=== PATIENT | female | born 1965 | race Caucasian/White ===

== ENCOUNTER 2017-10-20 05:56 | Day surgery (SDC) | payer MEDICAID ==
[~2017-10-20] VITALS: Ht 166.4 cm; Wt 59.1 kg
[~2017-10-20 05:56] MED LIST: BUPR-93 PO; DULO60CA44 PO; FAMO20 PO; FLUT16H NASAL; HYDR25TA PO; MONT10TA21 PO; PERCT10 PO; PSEU60 PO; TRAZ-144 PO
[2017-10-20] MEDS ORDERED: ALBUTEROL SULFATE 2.5 MG/0.5 ML NEB SOLUTION NEB ONE (05:57)
[2017-10-20] MEDS ORDERED: LIDOCAINE HCL 4% 50 ML SOLUTION TP ONE (05:57)
[2017-10-20] MEDS ORDERED: LIDOCAINE HCL 2% 30 ML JELLY TP ONE (05:57)
[2017-10-20] MEDS ORDERED: BENZOCAINE 20% 50 MCG/SPRAY 57 GM TP ONE (05:57)
[2017-10-20] MEDS ORDERED: SODIUM CHLORIDE 0.9% 1,000 ML IV ONE ×2 (06:55→07:00)
[2017-10-20] MEDS ORDERED: FentaNYL CITRATE-PF 100 MCG/2 ML VIAL ONE (08:02)
[2017-10-20] MEDS ORDERED: MIDAZOLAM HCL 2 MG/2 ML VIAL ONE (08:02)
[2017-10-20] MEDS ORDERED: MethylPREDNISolone SOD SUCC 125 MG/2 ML VIAL IVP ONE (08:30)
[2017-10-20] MEDS ORDERED: MethylPREDNISolone SOD SUCC 125 MG/2 ML VIAL ONE (08:45)
[2017-10-20] MEDS ORDERED: OXYGEN THERAPY IH SCH (20:00)
== END 2017-10-20 10:00 | disposition home or self-care (01) ==
LOC: SURGERY 05:56
PROVIDERS: ATTEND Internal Medicine Critical Care Medicine
DX: J38.4 Edema of larynx (principal); B37.0 Candidal stomatitis; J84.111 Idiopathic interstitial pneumonia, not otherwise specified; M19.90 Unspecified osteoarthritis, unspecified site; J44.9 Chronic obstructive pulmonary disease, unspecified; F17.210 Nicotine dependence, cigarettes, uncomplicated; Z79.891 Long term (current) use of opiate analgesic; Z98.890 Other specified postprocedural states; Z79.899 Other long term (current) drug therapy; Z88.1 Allergy status to other antibiotic agents
CPT/HCPCS: 31623; 31624; 71045; 87015; 87070; 87107; 87205; 87220; 88108; 88312; J2250; J2930; J3010; J7030

== ENCOUNTER 2018-11-12 06:51 | Day surgery (SDC) | payer MEDICAID ==
[~2018-11-12] VITALS: Ht 165.1 cm; Wt 57.0 kg
[~2018-11-12 06:51] MED LIST changes: +AZEL137S8 NASAL; -FAMO20 PO; +OMEP20 PO; -PSEU60 PO; +SODIUM CHLORIDE 0.9% 1,000 ML IV ONE; -TRAZ-144 PO; +[UNRECOGNIZED DRUG - OTHER] PO
[2018-11-12] MEDS ORDERED: ALBUTEROL SULFATE 2.5 MG/0.5 ML NEB SOLUTION NEB ONE (06:52)
[2018-11-12] MEDS ORDERED: LIDOCAINE 2% 30 ML JELLY TP ONE (06:52)
[2018-11-12] MEDS ORDERED: BENZOCAINE 20% 50 MCG/SPRAY 57 GM TP ONE (06:52)
[2018-11-12] MEDS ORDERED: MIDAZOLAM HCL 2 MG/2 ML VIAL ONE (07:34)
[2018-11-12] MEDS ORDERED: FentaNYL CITRATE-PF 100 MCG/2 ML VIAL ONE (07:34)
[2018-11-12] MEDS ORDERED: MethylPREDNISolone SOD SUCC 125 MG/2 ML VIAL IVP ONE (09:30)
[2018-11-12] MEDS ORDERED: MethylPREDNISolone SOD SUCC 125 MG/2 ML VIAL ONE (09:41)
[2018-11-12] MEDS ORDERED: OXYGEN THERAPY IH SCH (20:00)
== END 2018-11-12 10:45 | disposition home or self-care (01) ==
LOC: SURGERY 06:51
PROVIDERS: ATTEND Internal Medicine Critical Care Medicine
DX: J38.4 Edema of larynx (principal); B37.0 Candidal stomatitis; I10 Essential (primary) hypertension; M19.90 Unspecified osteoarthritis, unspecified site; F17.210 Nicotine dependence, cigarettes, uncomplicated; Z98.890 Other specified postprocedural states; J44.9 Chronic obstructive pulmonary disease, unspecified
CPT/HCPCS: 31623; 31624; 71045; 87015; 87070; 87101; 87205; 87206; 87220; 88108; 88312; J2250; J2930; J3010; J7030

== ENCOUNTER 2021-01-06 05:51 | Day surgery (SDC) | payer MEDICAID ==
[~2021-01-06] VITALS: Ht 165.1 cm; Wt 54.5 kg
[~2021-01-06 05:51] MED LIST changes: +DULO-8 PO; -DULO60CA44 PO; -HYDR25TA PO; +HYDR25TA2 PO; +MONT-35 PO; -MONT10TA21 PO; +OXYC-601 PO; -PERCT10 PO; -SODIUM CHLORIDE 0.9% 1,000 ML IV ONE
[2021-01-06] MEDS ORDERED: SODIUM CHLORIDE 0.9% 1,000 ML ONE (06:19)
[2021-01-06 06:39] LABS: COVID AG,FIA SOURCE NASOPHARYNGEAL
[2021-01-06] MEDS ORDERED: DULO-8 PO (07:00)
[2021-01-06] MEDS ORDERED: OMEP20 PO (07:00)
[2021-01-06] MEDS ORDERED: BACL10TA PO (07:00)
[2021-01-06] MEDS ORDERED: BUPR-121 PO (07:00)
[2021-01-06] MEDS ORDERED: SODIUM CHLORIDE 0.9% 1,000 ML IV ONE (07:00)
[2021-01-06] MEDS ORDERED: PRED-409 PO (07:00)
[2021-01-06] MEDS ORDERED: CYCL10 PO (07:00)
[2021-01-06] MEDS ORDERED: FentaNYL CITRATE PF 100 MCG/2 ML VIAL ONE (08:00)
[2021-01-06] MEDS ORDERED: MIDAZOLAM HCL 5 MG/ML VIAL ONE (08:00)
[2021-01-06] MEDS ORDERED: MethylPREDNISolone SOD SUCC 125 MG/2 ML VIAL IVP ONE (09:00)
[2021-01-06] MEDS ORDERED: MethylPREDNISolone SOD SUCC 125 MG/2 ML VIAL ONE (09:06)
[2021-01-06] MEDS ORDERED: OXYGEN THERAPY IH SCH (20:00)
== END 2021-01-06 10:47 | disposition home or self-care (01) ==
LOC: SURGERY 05:51
PROVIDERS: ATTEND Internal Medicine Critical Care Medicine
DX: J38.4 Edema of larynx (principal); B37.0 Candidal stomatitis; J43.9 Emphysema, unspecified; Z79.899 Other long term (current) drug therapy; Z98.890 Other specified postprocedural states
CPT/HCPCS: 31623; 31624; 71045; 71250; 87015; 87070; 87077; 87101; 87186; 87205; 87206; 87220; 87426; 88108; 88184; 88185; 88312; C9803; J2250; J2930; J3010; J7030

== ENCOUNTER → 2021-08-18 | Day surgery (SDC) | payer MEDICAID ==
[~2021-08-18] VITALS: Ht 165.1 cm; Wt 52.7 kg
[~2021-08-18] MED LIST changes: +ALBUTEROL SULFATE 2.5 MG/0.5 ML NEB SOLUTION NEB ONE; +ALEN35TA41 PO; -AZEL137S8 NASAL; +BACL10TA PO; +BENZOCAINE 20% 50 MCG/SPRAY 57 GM TP ONE; +BUPR-121 PO; -BUPR-93 PO; +CLAR250T39 PO; +CYCL10TA17 PO; -DULO-8 PO; +DULO60CA98 PO; -FLUT16H NASAL; +FLUT1BLS10 IH; +FentaNYL CITRATE PF 100 MCG/2 ML VIAL ONE; +LIDOCAINE 2% 30 ML JELLY TP ONE; +LIDOCAINE 4% 50 ML SOLUTION TP ONE; +MELO-107 PO; +MIDAZOLAM HCL 5 MG/ML VIAL ONE; +MethylPREDNISolone SOD SUCC 125 MG/2 ML VIAL IVP ONE; +MethylPREDNISolone SOD SUCC 125 MG/2 ML VIAL ONE; -OXYC-601 PO; +PRED-409 PO; +RIFA300 PO; +SODIUM CHLORIDE 0.9% 1,000 ML IV ONE; +SODIUM CHLORIDE 0.9% 1,000 ML ONE; +TRAZ-252 PO; -[UNRECOGNIZED DRUG - OTHER] PO
[2021-08-18 06:35] LABS: COVID AG,FIA SOURCE NASOPHARYNGEAL
== END | disposition still patient (30) ==
LOC: SURGERY 05:27
PROVIDERS: ATTEND Internal Medicine Critical Care Medicine
DX: R05.3 Chronic cough (principal); R06.2 Wheezing; R04.2 Hemoptysis; R91.1 Solitary pulmonary nodule; J34.89 Other specified disorders of nose and nasal sinuses; J38.4 Edema of larynx; B37.0 Candidal stomatitis; I10 Essential (primary) hypertension; F34.89 Other specified persistent mood disorders; Z88.1 Allergy status to other antibiotic agents; Z79.899 Other long term (current) drug therapy; Z20.822 Contact with and (suspected) exposure to COVID-19; Z87.891 Personal history of nicotine dependence
CPT/HCPCS: 31623; 31624; 36415; 71045; 87015; 87070; 87101; 87206; 87220; 87426; 88112; 88184; 88185; 88312; C9803; J2250; J2930; J3010; J7030; J7613; Z7610

== ENCOUNTER 2022-05-11 05:55 | Day surgery (SDC) | payer MEDICARE, MEDICAID ==
[~2022-05-11] VITALS: Ht 165.1 cm; Wt 54.5 kg
[~2022-05-11 05:55] MED LIST changes: -ALBUTEROL SULFATE 2.5 MG/0.5 ML NEB SOLUTION NEB ONE; -ALEN35TA41 PO; +ALEN70TA80 PO; -BENZOCAINE 20% 50 MCG/SPRAY 57 GM TP ONE; -BUPR-121 PO; +BUPR-50 PO; +CYCL-448 PO; -CYCL10TA17 PO; +DULO-113 PO; -DULO60CA98 PO; +ETHA400T33 PO; -FentaNYL CITRATE PF 100 MCG/2 ML VIAL ONE; +HYDR-3831 PO; -LIDOCAINE 2% 30 ML JELLY TP ONE; -LIDOCAINE 4% 50 ML SOLUTION TP ONE; -MELO-107 PO; +MELO-381 PO; -MIDAZOLAM HCL 5 MG/ML VIAL ONE; -MethylPREDNISolone SOD SUCC 125 MG/2 ML VIAL IVP ONE; -MethylPREDNISolone SOD SUCC 125 MG/2 ML VIAL ONE; +OXYC-618 PO; -PRED-409 PO; +PRED-549 PO; -RIFA300 PO; +RIFA300C36 PO; -SODIUM CHLORIDE 0.9% 1,000 ML IV ONE; -SODIUM CHLORIDE 0.9% 1,000 ML ONE; +SUCR1TAB PO; -TRAZ-252 PO; +TRAZ-257 PO; +UMEC62.5 IH
[2022-05-11] MEDS ORDERED: LIDOCAINE 4% 50 ML SOLUTION TP ONE (05:56)
[2022-05-11] MEDS ORDERED: BENZOCAINE 20% 50 MCG/SPRAY 57 GM TP ONE (05:56)
[2022-05-11] MEDS ORDERED: LIDOCAINE 2% 11 ML JELLY TP ONE (05:56)
[2022-05-11] MEDS ORDERED: ALBUTEROL SULFATE 2.5 MG/0.5 ML NEB SOLUTION NEB ONE (05:56)
[2022-05-11] MEDS ORDERED: SODIUM CHLORIDE 0.9% 1,000 ML ONE (06:18)
[2022-05-11 06:30] LABS: COVID AG,FIA SOURCE NASAL SWAB
[2022-05-11] MEDS ORDERED: SODIUM CHLORIDE 0.9% 1,000 ML IV ONE (06:30)
[2022-05-11] MEDS ORDERED: FentaNYL CITRATE PF 100 MCG/2 ML VIAL ONE (08:02)
[2022-05-11] MEDS ORDERED: MIDAZOLAM HCL 2 MG/2 ML VIAL ONE (08:02)
[2022-05-11] MEDS ORDERED: MethylPREDNISolone SOD SUCC 125 MG/2 ML VIAL IVP ONE (09:45)
[2022-05-11] MEDS ORDERED: MethylPREDNISolone SOD SUCC 125 MG/2 ML VIAL ONE (09:54)
[2022-05-11] MEDS ORDERED: OXYGEN THERAPY IH SCH (20:00)
== END 2022-05-11 11:15 | disposition home or self-care (01) ==
LOC: SURGERY 05:55
PROVIDERS: ATTEND Internal Medicine Critical Care Medicine
DX: J38.4 Edema of larynx (principal); B37.0 Candidal stomatitis; Z20.822 Contact with and (suspected) exposure to COVID-19; J43.9 Emphysema, unspecified; Z79.899 Other long term (current) drug therapy; Z98.890 Other specified postprocedural states
CPT/HCPCS: 31623; 87206; 87101; 87220; 87070; 88108; 88305; 31624; 71045; 87015; 87426; 99152; J3010; J2250; J2930; Q9967; J7030; C9803; J7613; Z7610

== ENCOUNTER 2024-04-15 07:05 | Day surgery (SDC) | payer MEDICARE, MEDICAID ==
[~2024-04-15] VITALS: Ht 165.1 cm; Wt 53.6 kg
[~2024-04-15 07:05] MED LIST changes: -BUPR-50 PO; +BUPR-514 PO; -CYCL-448 PO; -HYDR25TA2 PO; -MELO-381 PO; -RIFA300C36 PO; +RIFA300C63 PO; +SODIUM CHLORIDE 0.9% 1,000 ML ONE; -SUCR1TAB PO; +SUCR1TAB2 PO
[2024-04-15] MEDS ORDERED: FentaNYL CITRATE PF 100 MCG/2 ML VIAL ONE (08:06)
[2024-04-15] MEDS ORDERED: MIDAZOLAM HCL 2 MG/2 ML VIAL ONE (08:06)
[2024-04-15] MEDS: SODIUM CHLORIDE 0.9% 1,000 ML IV ONE (08:31)
[2024-04-15] MEDS ORDERED: FAMO20 PO (09:39)
[2024-04-15] MEDS ORDERED: HYDR25TA2 PO (09:39)
[2024-04-15] MEDS ORDERED: CHOL1CAP16 PO (09:42)
[2024-04-15] MEDS ORDERED: ALBU18HF12 IH (09:42)
[2024-04-15] MEDS ORDERED: DULO-114 PO (09:42)
[2024-04-15] MEDS ORDERED: FLUT1BLS IH (09:42)
[2024-04-15 09:48] VITALS: PULSE 90; RESP 22; O2SAT 97
[2024-04-15] MEDS ORDERED: MethylPREDNISolone SOD SUCC 125 MG/2 ML VIAL ONE (10:21)
[2024-04-15] MEDS: MethylPREDNISolone SOD SUCC 125 MG/2 ML VIAL IVP ONE (10:29)
== END 2024-04-15 12:15 | disposition home or self-care (01) ==
LOC: SURGERY 07:05
PROVIDERS: ATTEND Internal Medicine Critical Care Medicine
DX: R05.3 Chronic cough (principal); R06.2 Wheezing; R49.0 Dysphonia; R04.2 Hemoptysis; R91.8 Other nonspecific abnormal finding of lung field; J38.4 Edema of larynx; B37.0 Candidal stomatitis; J43.9 Emphysema, unspecified; Z79.891 Long term (current) use of opiate analgesic; Z88.1 Allergy status to other antibiotic agents
CPT/HCPCS: 31623; 87206; 87101; 87220; 87070; 88108; 31624; 94640; 71045; 87015; J3010; J2250; J2919; J7030